=== PATIENT | female | born 1975 | race Asian ===

== ENCOUNTER 2016-12-04 08:13 | Day surgery (SDC) | payer OTHER ==
[~2016-12-04] VITALS: Ht 157.5 cm; Wt 49.1 kg
[2016-12-04] MEDS ORDERED: SODIUM CHLORIDE 0.9% 1,000 ML IV ONE ×2 (08:23→08:30)
[2016-12-04] MEDS ORDERED: LORazepam 2 MG/ML VIAL IVP ONE (10:00)
[2016-12-04] MEDS ORDERED: FentaNYL CITRATE-PF 100 MCG/2 ML VIAL ONE (11:54)
[2016-12-04] MEDS ORDERED: MIDAZOLAM HCL 2 MG/2 ML VIAL ONE (11:54)
[2016-12-04] MEDS ORDERED: LIDOCAINE HCL/PF 1% 30 ML VIAL ONE ×2 (11:54→13:25)
[2016-12-04] MEDS ORDERED: FentaNYL CITRATE-PF 100 MCG/2 ML VIAL IVP ONE (13:29)
[2016-12-04] MEDS ORDERED: CeFAZolin 1 GM/DEXTROSE 50 ML IV ONE ×2 (13:52→14:00)
[2016-12-04] MEDS ORDERED: PROMETHAZINE HCL 25 MG/ML VIAL IM ONE (14:45)
== END 2016-12-04 16:35 | disposition home or self-care (01) ==
LOC: SDS 08:13 → EDSTATUS 10:00 → SDS 16:35
PROVIDERS: ATTEND Radiology Diagnostic Radiology
DX: N63 Unspecified lump in breast (principal); Z90.49 Acquired absence of other specified parts of digestive tract; Z98.890 Other specified postprocedural states
CPT/HCPCS: 19105; 84703; C2618; J0690; J3010; J3490; J7030; 76942; J2250